=== PATIENT | female | born 1995 | race Caucasian/White ===

== ENCOUNTER 2022-04-15 05:38 | Inpatient (IN) ==
[2022-04-15] MEDS ORDERED: LACTATED RINGERS 500 ML IV PRN (05:44)
[2022-04-15] MEDS ORDERED: miSOPROStoL 200 MCG TABLET RECTAL PRN (05:44)
[2022-04-15] MEDS ORDERED: CARBOPROST TROMETHAMINE 250 MCG/ML AMP IM PRN (05:44)
[2022-04-15] MEDS ORDERED: METHYLERGONOVINE 0.2 MG/1 ML AMP IM PRN (05:44)
[2022-04-15] MEDS ORDERED: OXYTOCIN/LR 20 UNIT/1,000 ML BAG IV ONE ×3 (05:44→13:03)
[2022-04-15] MEDS ORDERED: TRANEXAMIC ACID 1,000 MG in SODIUM CHLORIDE 0.9% 100 ML IV PRN (05:44)
[2022-04-15] MEDS ORDERED: ONDANSETRON 4 MG/2 ML VIAL IV PRN ×2 (05:44→13:03)
[2022-04-15] MEDS: LACTATED RINGERS 1,000 ML IV SCH ×2 (06:00→19:43)
[2022-04-15 06:18] LABS: Basophils % 0.5 % (0.0-0.8); Eosinophils # 0.1 10*3/uL (0.0-0.87); Hematocrit 35.5 VOL% (35.7-47.0); Hemoglobin 11.7 GM/DL (12.0-16.0); Immature Granulocytes % 2.3 %; Immature Granulocytes Absolute 0.19 #; Lymphocytes # 2.4 10*3/uL (1.4-4.0); Lymphocytes % 29.3 % (21.3-54.2); Mean Platelet Volume 10.2 FL (9.6-12.0); Monocytes # 0.8 10*3/uL (0.11-0.8); Monocytes % 9.4 % (1.7-12.7); Neutrophils % 57.5 % (38.7-73.9); Platelet Count 230 T/CUMM (130-400); Red Blood Count 3.86 MC/CUMM (3.8-5.5); Red Cell Distribution Width 13.3 % (9.3-17.3); White Blood Count 8.3 T/CUMM (4-12)
[2022-04-15 06:38] LABS: Alanine Aminotransferase 14 U/L (13-56); Albumin 2.9 G/DL (3.4-5.0); Alkaline Phosphatase 96 U/L (45-117); Aspartate Amino Transferase 15 U/L (0-37); Bilirubin,Total < 0.39 MG/DL (0.20-1.00); Blood Urea Nitrogen 7 MG/DL (7-18); Calcium 8.4 MG/DL (8.5-10.1); Carbon Dioxide 22 MMOL/L (21-32); Chloride 110 MMOL/L (98-107); Glucose 79 MG/DL (74-106); Osmolality,Calculated 275.4 MOS/KG (273-304); Potassium 3.4 MMOL/L (3.5-5.1); Sodium 140 MMOL/L (136-145); Total Protein 7.2 G/DL (6.4-8.2)
[2022-04-15] MEDS ORDERED: PHENYLEPHRINE 1 MG/10 ML SYRINGE IV ONE (06:38)
[2022-04-15] MEDS ORDERED: ONDANSETRON 4 MG/2 ML VIAL ONE (06:38)
[2022-04-15] MEDS ORDERED: buprenorphine HCL 0.3 MG/ML VIAL ONE (06:39)
[2022-04-15] MEDS ORDERED: BUPIVACAINE MPF 0.5% 30 ML VIAL ONE (06:43)
[2022-04-15] MEDS ORDERED: CITRIC ACID/SODIUM CITRATE 30 ML UDCUP PO ONE (06:45)
[2022-04-15] MEDS ORDERED: FAMOTIDINE 20 MG/2 ML VIAL IV ONE (06:45)
[2022-04-15] MEDS ORDERED: ceFAZolin 2,000 MG/50 ML DUPLEX IV ONE (06:45)
[2022-04-15] MEDS ORDERED: propofoL 200 MG/20 ML VIAL IV ONE (09:25)
[2022-04-15 09:40] LABS: Cord Venous Blood HCO3 23.8 MMOL/L; Cord Venous Blood PCO2 28.8 MMHG; Cord Venous Blood PO2 28.3
[2022-04-15 09:43] LABS: RBC,Urine <1 /HPF (0-4); Squamous Epithelial Cell,Urine Occasional /HPF (0-10)
[2022-04-15 09:45] LABS: Bilirubin,Urine Negative (Negative); Blood, Urine Trace mg/dL (Negative); Glucose,Urine (UA) Negative (Negative); Ketones,Urine Negative (Negative); Nitrite,Urine Negative (Negative); Protein,Urine Negative (Negative); Urine Appearance Clear (Clear); Urine Color Yellow (Yellow); Urine Urobilinogen 0.2 eU/dL (<2.0)
[2022-04-15] MEDS: KETOROLAC 30 MG/1 ML VIAL IV SCH ×3 (11:46→22:15)
[2022-04-15] MEDS: ACETAMINOPHEN 500 MG TABLET PO SCH ×3 (11:46→22:16)
[2022-04-15] MEDS ORDERED: RHO(D) IMMUNE GLOBULIN 300 MCG SYRINGE IM ONE (13:03)
[2022-04-15] MEDS ORDERED: ACETAMINOPHEN 325 MG TABLET PO PRN (13:03)
[2022-04-15] MEDS ORDERED: BISACODYL 10 MG SUPP RECTAL PRN (13:03)
[2022-04-15] MEDS ORDERED: MEASLES/MUMPS/RUBELLA VACCINE 0.5 ML VIAL SUBCUT ONE (13:03)
[2022-04-15] MEDS ORDERED: LANOLIN 50% CREAM 0.3 OZ TUBE TOP PRN (13:03)
[2022-04-15] MEDS ORDERED: oxyCODONE/ACETAMINOPHEN 5-325 MG TABLET PO PRN ×2 (13:03)
[2022-04-15] MEDS ORDERED: WITCH HAZEL PADS 100/JAR TOP PRN (13:03)
[2022-04-15] MEDS ORDERED: BENZOCAINE 20%/MENTHOL 0.5% SPRAY 56 GM CAN TOP PRN (13:03)
[2022-04-15] MEDS ORDERED: HYDROCORTISONE 2.5% RECTAL CREAM 30 GM TUBE TOP PRN (13:03)
[2022-04-15] MEDS ORDERED: DIPH/TET/ACEL PERT BOOSTER VACCINE 0.5 ML VIAL IM ONE (13:03)
[2022-04-15] MEDS: DOCUSATE SODIUM 100 MG CAPSULE PO SCH (20:40)
[2022-04-16] MEDS: ACETAMINOPHEN 500 MG TABLET PO SCH (04:26)
[2022-04-16] MEDS: KETOROLAC 30 MG/1 ML VIAL IV SCH (04:27)
[2022-04-16 05:03] LABS: Basophils # 0.1 10*3/uL (0.0-0.2); Basophils % 0.4 % (0.0-0.8); Eosinophils # 0.1 10*3/uL (0.0-0.87); Eosinophils % 1.1 % (0.00-10.9); Hematocrit 28.9 VOL% (35.7-47.0); Hemoglobin 9.3 GM/DL (12.0-16.0); Immature Granulocytes % 1.1 %; Immature Granulocytes Absolute 0.13 #; Lymphocytes % 25.5 % (21.3-54.2); Mean Corpuscular HGB Conc 32.2 GM/DL (32-36); Mean Corpuscular Volume 92.9 FL (87-102); Mean Platelet Volume 10.5 FL (9.6-12.0); Monocytes # 0.9 10*3/uL (0.11-0.8); Monocytes % 7.6 % (1.7-12.7); Neutrophils % 64.3 % (38.7-73.9); Platelet Count 188 T/CUMM (130-400); Red Blood Count 3.11 MC/CUMM (3.8-5.5); Red Cell Distribution Width 13.2 % (9.3-17.3); White Blood Count 11.8 T/CUMM (4-12)
[2022-04-16] MEDS ORDERED: MAGNESIUM HYDROXIDE SUSP 30 ML UDCUP PO ONE (09:21)
[2022-04-16] MEDS: MULTIVITAMIN (PRENATAL) TABLET PO SCH (09:36)
[2022-04-16] MEDS: IBUPROFEN 800 MG TABLET PO PRN ×2 (09:36→21:24)
[2022-04-16] MEDS: DOCUSATE SODIUM 100 MG CAPSULE PO SCH ×2 (09:36→21:23)
[2022-04-17] MEDS: IBUPROFEN 800 MG TABLET PO PRN (04:50)
[2022-04-17] MEDS: MULTIVITAMIN (PRENATAL) TABLET PO SCH (08:28)
[2022-04-17] MEDS: DOCUSATE SODIUM 100 MG CAPSULE PO SCH (08:28)
[2022-04-17] MEDS ORDERED: SUMAtriptan 6 MG/0.5 ML VIAL SUBCUT PRN (08:54)
[2022-04-17] MEDS ORDERED: BUTALBITAL/ACETAMIN/CAFFEINE 50-325-40 MG TABLET PO PRN (08:55)
[2022-04-17 11:12] VITALS: BP 117/77
== END 2022-04-17 13:40 | disposition home or self-care (01) | DRG 788 ==
LOC: N.LD 05:38 → N.OB 12:45
PROVIDERS: ADMIT Specialist; ATTEND Specialist
PROC: LDCSECT (ICD-10-PCS; 2022-04-15 08:00)